=== PATIENT | female | born 1990 | race Caucasian/White ===

== ENCOUNTER 2016-10-04 16:29 | Emergency (ER) | payer OTHER ==
[2016-10-04] MEDS ORDERED: PHENAZOPYRIDINE 100 MG TABLET PO STA (16:55)
[2016-10-04] MEDS ORDERED: NITROFURANTOIN MACRO 100 MG CAPSULE PO STA (16:55)
[2016-10-04] MEDS ORDERED: PHENAZOPYRIDINE 100 MG TABLET PO ONE (17:00)
[2016-10-04] MEDS ORDERED: NITROFURANTOIN MACRO 100 MG CAPSULE PO ONE (17:00)
== END 2016-10-04 17:06 | disposition home or self-care (01) ==
DX: R35.0 Frequency of micturition (principal); N30.01 Acute cystitis with hematuria; J45.909 Unspecified asthma, uncomplicated; F17.200 Nicotine dependence, unspecified, uncomplicated
CPT/HCPCS: 81001; 81025; 87077; 87086; 87181; 99283; A9270

== ENCOUNTER 2016-10-19 11:53 | Emergency (ER) | payer OTHER | END 2016-10-19 15:00 | disposition home or self-care (01) | DX: S06.0X0A Concussion without loss of consciousness, initial encounter (principal); V48.4XXA Person boarding or alighting a car injured in noncollision transport accident, initial encounter; R03.0 Elevated blood-pressure reading, without diagnosis of hypertension; F17.200 Nicotine dependence, unspecified, uncomplicated ==

== ENCOUNTER 2016-11-09 14:45 | Emergency (ER) | payer OTHER | END 2016-11-09 15:26 | disposition home or self-care (01) | DX: B37.89 Other sites of candidiasis (principal); J45.909 Unspecified asthma, uncomplicated; F17.200 Nicotine dependence, unspecified, uncomplicated ==

== ENCOUNTER 2016-12-04 15:04 | Emergency (ER) | payer OTHER ==
[2016-12-04] MEDS ORDERED: IBUPROFEN 800 MG TABLET PO STA (16:20)
[2016-12-04] MEDS ORDERED: ACETAMINOPHEN 650 MG SUPP PR STA (16:20)
[2016-12-04] MEDS ORDERED: ALBUTEROL NEB 2.5 MG/3 ML INH STA (16:25)
[2016-12-04] MEDS ORDERED: IBUPROFEN 800 MG TABLET PO ONE (16:31)
[2016-12-04] MEDS ORDERED: ACETAMINOPHEN 325 MG TABLET PO ONE (16:31)
[2016-12-04] MEDS ORDERED: ALBUTEROL NEB 2.5 MG/3 ML INH ONE (16:49)
[2016-12-04] MEDS ORDERED: ACETAMINOPHEN 325 MG TABLET PO STA (16:50)
== END 2016-12-04 17:35 | disposition home or self-care (01) ==
DX: J10.1 Influenza due to other identified influenza virus with other respiratory manifestations (principal); R91.1 Solitary pulmonary nodule; R03.0 Elevated blood-pressure reading, without diagnosis of hypertension; J45.909 Unspecified asthma, uncomplicated; F17.200 Nicotine dependence, unspecified, uncomplicated
CPT/HCPCS: 71020; 87275; 87276; 94640; 99283; 99284; A9270; J7613

== ENCOUNTER 2017-01-02 19:22 | Emergency (ER) | payer OTHER ==
[2017-01-02] MEDS ORDERED: PROPARACAINE 0.5% OPHTH DROPS 15 ML ONE (20:12)
--- NOTE | 2017-01-02 20:19 | ED Physician Documentation ---
PD HPI OPHTHO - Stated complaint Stated Complaint: LT EYE PX - Chief complaint Chief Complaint: Heent - History obtained from History obtained from: Patient - History of Present Illness Timing - onset: Other (Contact lens wearer with left eye clear drainage and irritation today without visual deficit or significant pain.) Review of Systems Constitutional: denies: Fever, Chills Nose: denies: Rhinorrhea / runny nose, Congestion Throat: denies: Sore throat PD PAST MEDICAL HISTORY - Past Medical History Cardiovascular: None Respiratory: Asthma Neuro: None Endocrine/Autoimmune: None GI: None CHILD CARE LEADER: None : None HEENT: None Psych: None Musculoskeletal: None Derm: None - Past Surgical History Past Surgical History: Yes Ortho: Other - Present Medications Home Medications: Ambulatory Orders Medication Instructions Recorded Confirmed Bcp 04/26/16 Naphazoline HCl/Pheniramine 1 drops OP TID #1 bot 01/02/17 [Naphcon-A Eye Drops] - Allergies Allergies/Adverse Reactions: Allergies Allergy/AdvReac Type Severity Reaction Status Date / Time pertussis vaccine,adsorbed Allergy Unknown Verified 01/02/17 19:30 - Social History Does the pt smoke?: No Smoking Status: Never smoker Does the pt drink ETOH?: Yes Does the pt have substance abuse?: No - Immunizations Immunizations are current?: Yes - POLST Patient has POLST: No PD ED PE NORMAL - Vitals Vital signs reviewed: Yes - General General: Alert and oriented X 3, No acute distress - HEENT HEENT: PERRL, EOMI, Other (Right eye with conjunctivitis and clear drainage, no fluorescein uptake. This is all consistent with viral conjunctivitis.) - Neck Neck: Supple, no meningeal sign, No bony TTP - Neuro Neuro: Alert and oriented X 3, Normal speech - Psych Psych: Normal mood, Normal affect Results - Vitals Vitals: Vital Signs - 24 hr 01/02/17 19:30 Temperature 36.0 C L Heart Rate 77 Respiratory 16 Rate Blood Pressure 109/73 O2 Saturation 98 Oxygen O2 Source Room air Departure - Departure Disposition: 01 Home, Self Care Clinical Impression: Viral conjunctivitis of left eye Condition: Good Record reviewed to determine appropriate education?: Yes Instructions: Red Eye Tx Prescriptions: Naphazoline HCl/Pheniramine [Naphcon-A Eye Drops] 1 drops OP TID #1 bot Comments: Followup with your eye doctor in 2 days for recheck. Return if worse. Do not wear your contact lenses for now.
[2017-01-02 20:24] VITALS: BP 123/85
== END 2017-01-02 20:26 | disposition home or self-care (01) ==
LOC: ED 19:22
DX: B30.9 Viral conjunctivitis, unspecified (principal); J45.909 Unspecified asthma, uncomplicated
CPT/HCPCS: 99283; J3490

== ENCOUNTER 2017-02-23 16:28 | Emergency (ER) | payer OTHER ==
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
[2017-02-23] MEDS ORDERED: HYDROcod/ACET 5/325 Prepack 6 PO ONE ×2 (19:00→19:04)
[2017-02-23] MEDS ORDERED: METHOCARBAMOL 500 MG TABLET PO STA (19:00)
[2017-02-23] MEDS ORDERED: IBUPROFEN 600 MG TABLET PO STA (19:00)
[2017-02-23] MEDS ORDERED: ACETAMINOPHEN 325 MG TABLET PO STA (19:00)
[2017-02-23] MEDS ORDERED: IBUPROFEN 600 MG TABLET PO ONE (19:04)
[2017-02-23] MEDS ORDERED: METHOCARBAMOL 500 MG TABLET PO ONE (19:04)
[2017-02-23] MEDS ORDERED: ACETAMINOPHEN 325 MG TABLET PO ONE (19:04)
[2017-02-23] MEDS ORDERED: traMADol 50 MG TABLET PO STA (19:46)
[2017-02-23] MEDS ORDERED: traMADol 50 MG TABLET PO ONE (19:54)
--- NOTE | 2017-02-23 19:54 | XRAY Preliminary Report ---
Exam: XR Cervical Spine 2 View IMPRESSION: Reversal of normal cervical lordosis, otherwise unremarkable cervical spine radiography. [facility] SITE ID: [id number]
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
[2017-02-23 21:23] VITALS: BP 114/75
== END 2017-02-23 19:55 | disposition home or self-care (01) ==
LOC: ED 16:28
DX: S16.1XXA Strain of muscle, fascia and tendon at neck level, initial encounter (principal); Y04.8XXA Assault by other bodily force, initial encounter
CPT/HCPCS: 72040; 99283; A9270